=== PATIENT | female | born 1985 | race Caucasian/White ===

== ENCOUNTER 2018-08-14 12:07 | Emergency (ER) | payer MEDICAID, SELFPAY ==
--- NOTE | 2018-08-14 12:13 | NUR.NOTE ---
Nursing Note: pt states that for the past 2 weeks she has had general upper respiratory symptoms pt has productive cough with thick green mucus
[2018-08-14 12:14] VITALS: BP 124/98; PULSE 90; RESP 18; TEMP 37.3; O2SAT 100
--- NOTE | 2018-08-14 12:18 | W.ED.GENAD ---
Discharge Plan Disposition Patient Disposition: HOME Condition: Fair Discharge Details Chief Complaint: RespSymp Clinical Impression: URI (upper respiratory infection), Sinusitis Primary Care Provider: Najma Vaughn ED Provider: Randa Gonsalez Home Meds and New Rx's Prescriptions: New benzonatate [Tessalon Perles] 100 mg capsule 100 mg PO TID PRN (Reason: cough) Qty: 10 RF: 0 amoxicillin-pot clavulanate [Augmentin] 875-125 mg tablet 1 tab PO BID Qty: 14 RF: 0 Discharge Instructions Instructions: Sinusitis (ED), Upper Respiratory Infection (ED) Additional Instructions: Encourage hydration. Tylenol and ibuprofen as needed for discomfort. Please take Augmentin as prescribed for sinus infection. You may continue with the nasal saline. Tessalon Perles prescribed to help with cough. If you develop fever/chills, inability stay hydrated, shortness of breath, difficulty breathing or other new/worsening symptoms please seek care urgently once again. Otherwise, please follow-up with primary care in 1 week if not improving. Referrals: Najma Vaughn [Primary Care Provider] - Discharge Data Discharge Date/Time-TO BE ENTERED AT DEPARTURE: 08/14/18 13:49 Medical Decision Making Patient is a 32-year-old female presenting today with chief complaint of URI. She reports symptoms began approximately 2 weeks ago. Primary complaint at this time is cough and sinus pain. She reports that sinus pain began 2 weeks ago and has persisted since that time. States that she has had intermittent fevers, none today. Has not taken anything as of yet today to have a symptomatic management. Also endorses cough, reports she had some pain with cough this point of the past few days. No chest pain when at rest. She is feeling short of breath. States she is been bringing up green sputum with her cough. No recent travel. No estrogen use. Vital signs are reassuring, pulse 90, oxygen 100%. Lungs are clear on exam. She is quite tender over her frontal sinuses. Plan to obtain chest x-ray to evaluate for pneumonia and treat for sinusitis. Discussed this plan with the patient was in agreement. Patient reports she is not sexually active, recent menses. FINDINGS: Lungs: No focal peripheral lung consolidation, air bronchogram formation, or silhouette sign. Pleural space: No pleural effusion or pneumothorax. Heart/Mediastinum: The heart is not enlarged. The mediastinal contours are normal. Bones/joints: No acute osseous abnormality. IMPRESSION: No pneumonia. Discussed these findings with the patient. Encourage hydration. Patient will be treated for sinusitis. She was given strict return precautions. Advised to follow-up with primary care in 1 week if not improving. Also prescribed Tessalon Perles to help with symptomatic management. We discussed home and [id number] medications and home treatments that may be of benefit to help with symptomatic management. All of her questions and concerns were addressed she is in agreement this plan HPI General Mode of arrival: ambulatory. Date/Time Provider Initiated Documentation: 08/14/18 12:14. Limitations to Documentation: no limitations. Information obtained by: patient and RN notes reviewed. History of Present Illness 32 year old F presents to the emergency department with the chief complaint of URI, described as moderate, with intensity rated at 3 (frontal sinus pain). Quality is described as stabbing, and is localized to the face. Patient reports no radiation. Patient started experiencing this week(s) (2) and it has been constant. No relieving factors improve symptom(s), No exacerbating factors reported . Patient notes chest pain (with cough), cough (productive, bringing up green sputum) and fever/chills; denies headaches, loss of appetite, nausea/vomiting, rash, shortness of breath and weakness. Patient did receive the following treatments prior to arrival, none Related Data Home Medications Medication Instructions Recorded Confirmed amoxicillin-pot clavulanate 1 tab PO BID #14 tab 08/14/18 [Augmentin] benzonatate [Tessalon Perles] 100 mg PO TID PRN #10 cap 08/14/18 Previous Rx's Medication Instructions Recorded amoxicillin-pot clavulanate 1 tab PO BID #14 tab 08/14/18 [Augmentin] benzonatate [Tessalon Perles] 100 mg PO TID PRN #10 cap 08/14/18 Allergies Allergy/AdvReac Type Severity Reaction Status Date / Time No Known Allergies Allergy Unverified 08/14/18 12:16 General Stated Complaint: RespSymp JL: 4 Review of Systems Constitutional Reports as per HPI, Denies chills, Denies fever(s), Reports headache(s) (associates with sinus pain) and Reports poor appetite Eyes Reports as per HPI, Denies eye discharge and Denies irritation ENT Reports as per HPI, Denies ear discharge, Denies otalgia, Reports headache(s) (associates with sinus pain), Reports sinus pain, Reports sinus pressure and Reports sore throat Cardiovascular Reports as per HPI, Denies chest pain and Denies dyspnea Respiratory Reports as per HPI, Reports cough, Denies hemoptysis, Denies dyspnea and Denies wheezing Gastrointestinal Reports as per HPI, Denies abdominal pain, Denies change in bowel habits, Denies nausea and Denies vomiting Integumentary/Breasts Reports as per HPI and Denies rash Neurologic Reports as per HPI and Reports headache(s) (associates with sinus pain) Allergic/Immunologic Denies wheezing [facility] Social History Smoking/Tobacco Use Status: Never Alcohol Intake: current Alcohol Intake frequency: a few times a month Alcohol type: wine Drug use: Never Substance use type: does not use Do you feel safe at home: Yes Do you feel safe in your relationship?: Yes Exam Const General: cooperative, healthy appearing, comfortable, no acute distress, well developed and well groomed Nutritional Appearance: average body habitus and well nourished Orientation: alert and awake [facility] Head: normal to inspection, normocephalic and atraumatic Ears: hearing grossly normal bilaterally, external ears normal and TM's normal bilaterally General nose exam: external nose normal and nares normal Face and sinus: normal facial exam, face symmetric and sinus tenderness maxillary (bilaterally) Mouth: oral mucosae normal, lip normal, tongue normal, oropharynx normal and moist mucous membranes Teeth and gingiva: dentition normal Throat: posterior oropharynx abnormal (erythematous), tonsils normal and uvula midline Eyes General: appearance normal, both eyes and all related structures Neck Neck: normal visual inspection, full ROM, no lymphadenopathy and no meningeal signs Resp Effort & Inspection: normal respiratory effort, able to speak in complete sentences and no respiratory distress Auscultation: clear to auscultation bilaterally, no rales, no rhonchi and no wheezes Cardio Rate: regular rate Rhythm: regular rhythm Heart Sounds: S1 normal and S2 normal Skin General skin exam: no rashes or lesions noted Neuro General: alert and awake Cognition: normal cognition Speech: speech normal Gait: normal gait Psych Appearance: grossly normal and well kempt Mental Status: mental status grossly normal Speech and Movement: speech and movement normal Course Vital Signs Temperature 37.3 C 08/14/18 12:14 Pulse 90 08/14/18 12:14 Respiratory Rate 18 08/14/18 12:14 Blood Pressure 124/98 H 08/14/18 12:14 Pulse Oximetry 100 08/14/18 12:14 Temperature 37.3 C 08/14/18 12:14 Temperature Source Skin 08/14/18 12:14 Pulse 90 08/14/18 12:14 Respiratory Rate 18 08/14/18 12:14 Blood Pressure 124/98 H 08/14/18 12:14 Blood Pressure Position Sitting 08/14/18 12:14 Pulse Oximetry 100 08/14/18 12:14 Oxygen Delivery Method Room Air 08/14/18 12:14 Oxygen Flow Rate 0 08/14/18 12:14 Pain Level 3 08/14/18 12:14
--- NOTE | 2018-08-14 12:29 | DI.RAD_ITS ---
SYMPTOM/DIAGNOSIS: COUGH PA AND LATERAL CHEST: The cardiac and mediastinal contours have a normal appearance. The lungs are well inflated and clear. No infiltrate or effusion is seen. There is no evidence of pneumothorax. IMPRESSION: Negative chest x-ray
--- NOTE | 2018-08-14 12:57 | ED.GENADUL_ITS ---
Discharge Plan Disposition Patient Disposition: HOME Condition: Fair Discharge Details Chief Complaint: RespSymp Clinical Impression: URI (upper respiratory infection), Sinusitis Primary Care Provider: Najma Vaughn ED Provider: Randa Gonsalez Home Meds and New Rx's Prescriptions: New benzonatate [Tessalon Perles] 100 mg capsule 100 mg PO TID PRN (Reason: cough) Qty: 10 RF: 0 amoxicillin-pot clavulanate [Augmentin] 875-125 mg tablet 1 tab PO BID Qty: 14 RF: 0 Discharge Instructions Instructions: Sinusitis (ED), Upper Respiratory Infection (ED) Additional Instructions: Encourage hydration. Tylenol and ibuprofen as needed for discomfort. Please take Augmentin as prescribed for sinus infection. You may continue with the nasal saline. Tessalon Perles prescribed to help with cough. If you develop fever/chills, inability stay hydrated, shortness of breath, difficulty breathing or other new/worsening symptoms please seek care urgently once again. Otherwise, please follow-up with primary care in 1 week if not improving. Referrals: Najma Vaughn [Primary Care Provider] - Discharge Data Discharge Date/Time-TO BE ENTERED AT DEPARTURE: 08/14/18 13:49 Medical Decision Making Patient is a 32-year-old female presenting today with chief complaint of URI. She reports symptoms began approximately 2 weeks ago. Primary complaint at this time is cough and sinus pain. She reports that sinus pain began 2 weeks ago and has persisted since that time. States that she has had intermittent fevers, none today. Has not taken anything as of yet today to have a symptomatic management. Also endorses cough, reports she had some pain with cough this point of the past few days. No chest pain when at rest. She is feeling short of breath. States she is been bringing up green sputum with her cough. No recent travel. No estrogen use. Vital signs are reassuring, pulse 90, oxygen 100%. Lungs are clear on exam. She is quite tender over her frontal sinuses. Plan to obtain chest x-ray to evaluate for pneumonia and treat for sinusitis. Discussed this plan with the patient was in agreement. Patient reports she is not sexually active, recent menses. FINDINGS: Lungs: No focal peripheral lung consolidation, air bronchogram formation, or silhouette sign. Pleural space: No pleural effusion or pneumothorax. Heart/Mediastinum: The heart is not enlarged. The mediastinal contours are normal. Bones/joints: No acute osseous abnormality. IMPRESSION: No pneumonia. Discussed these findings with the patient. Encourage hydration. Patient will be treated for sinusitis. She was given strict return precautions. Advised to follow-up with primary care in 1 week if not improving. Also prescribed Tessalon Perles to help with symptomatic management. We discussed home and [id number] medications and home treatments that may be of benefit to help with symptomatic management. All of her questions and concerns were addressed she is in agreement this plan HPI General Mode of arrival: ambulatory . Date/Time Provider Initiated Documentation: 08/14/18 12:14 . Limitations to Documentation: no limitations . Information obtained by: patient and RN notes reviewed . History of Present Illness 32 year old F presents to the emergency department with the chief complaint of URI, described as moderate, with intensity rated at 3 (frontal sinus pain). Quality is described as stabbing, and is localized to the face. Patient reports no radiation. Patient started experiencing this week(s) (2) and it has been constant. No relieving factors improve symptom(s), No exacerbating factors reported . Patient notes chest pain (with cough), cough (productive, bringing up green sputum) and fever/chills; denies headaches, loss of appetite, nausea/vomiting, rash, shortness of breath and weakness. Patient did receive the following treatments prior to arrival, none Related Data Home Medications Medication Instructions Recorded Confirmed amoxicillin-pot clavulanate 1 tab PO BID #14 tab 08/14/18 [Augmentin] benzonatate [Tessalon Perles] 100 mg PO TID PRN #10 cap 08/14/18 Previous Rx's Medication Instructions Recorded amoxicillin-pot clavulanate 1 tab PO BID #14 tab 08/14/18 [Augmentin] benzonatate [Tessalon Perles] 100 mg PO TID PRN #10 cap 08/14/18 Allergies Allergy/AdvReac Type Severity Reaction Status Date / Time No Known Allergies Allergy Unverified 08/14/18 12:16 General Stated Complaint: RespSymp JL: 4 Review of Systems Constitutional Reports as per HPI, Denies chills, Denies fever(s), Reports headache(s) (associates with sinus pain) and Reports poor appetite Eyes Reports as per HPI, Denies eye discharge and Denies irritation ENT Reports as per HPI, Denies ear discharge, Denies otalgia, Reports headache(s) (associates with sinus pain), Reports sinus pain, Reports sinus pressure and Reports sore throat Cardiovascular Reports as per HPI, Denies chest pain and Denies dyspnea Respiratory Reports as per HPI, Reports cough, Denies hemoptysis, Denies dyspnea and Denies wheezing Gastrointestinal Reports as per HPI, Denies abdominal pain, Denies change in bowel habits, Denies nausea and Denies vomiting Integumentary/Breasts Reports as per HPI and Denies rash Neurologic Reports as per HPI and Reports headache(s) (associates with sinus pain) Allergic/Immunologic Denies wheezing [facility] Social History Smoking/Tobacco Use Status: Never Alcohol Intake: current Alcohol Intake frequency: a few times a month Alcohol type: wine Drug use: Never Substance use type: does not use Do you feel safe at home: Yes Do you feel safe in your relationship?: Yes Exam Const General: cooperative, healthy appearing, comfortable, no acute distress, well developed and well groomed Nutritional Appearance: average body habitus and well nourished Orientation: alert and awake [facility] Head: normal to inspection, normocephalic and atraumatic Ears: hearing grossly normal bilaterally, external ears normal and TM's normal bilaterally General nose exam: external nose normal and nares normal Face and sinus: normal facial exam, face symmetric and sinus tenderness maxillary (bilaterally) Mouth: oral mucosae normal, lip normal, tongue normal, oropharynx normal and moist mucous membranes Teeth and gingiva: dentition normal Throat: posterior oropharynx abnormal (erythematous), tonsils normal and uvula midline Eyes General: appearance normal, both eyes and all related structures Neck Neck: normal visual inspection, full ROM, no lymphadenopathy and no meningeal signs Resp Effort & Inspection: normal respiratory effort, able to speak in complete sentences and no respiratory distress Auscultation: clear to auscultation bilaterally, no rales, no rhonchi and no wheezes Cardio Rate: regular rate Rhythm: regular rhythm Heart Sounds: S1 normal and S2 normal Skin General skin exam: no rashes or lesions noted Neuro General: alert and awake Cognition: normal cognition Speech: speech normal Gait: normal gait Psych Appearance: grossly normal and well kempt Mental Status: mental status grossly normal Speech and Movement: speech and movement normal Course Vital Signs Temperature 37.3 C 08/14/18 12:14 Pulse 90 08/14/18 12:14 Respiratory Rate 18 08/14/18 12:14 Blood Pressure 124/98 H 08/14/18 12:14 Pulse Oximetry 100 08/14/18 12:14 Temperature 37.3 C 08/14/18 12:14 Temperature Source Skin 08/14/18 12:14 Pulse 90 08/14/18 12:14 Respiratory Rate 18 08/14/18 12:14 Blood Pressure 124/98 H 08/14/18 12:14 Blood Pressure Position Sitting 08/14/18 12:14 Pulse Oximetry 100 08/14/18 12:14 Oxygen Delivery Method Room Air 08/14/18 12:14 Oxygen Flow Rate 0 08/14/18 12:14 Pain Level 3 08/14/18 12:14
--- NOTE | 2018-08-14 13:00 | DI.VRAD_ITS ---
EXAM: XR Chest, 2 Views EXAM DATE/TIME: 08/14/2018 12:30 PM CLINICAL HISTORY: 32 years old, female; Cough and wheezing TECHNIQUE: Imaging protocol: XR of the chest, 2 views. COMPARISON: No relevant prior studies available. FINDINGS: Lungs: No focal peripheral lung consolidation, air bronchogram formation, or silhouette sign. Pleural space: No pleural effusion or pneumothorax. Heart/Mediastinum: The heart is not enlarged. The mediastinal contours are normal. Bones/joints: No acute osseous abnormality. IMPRESSION: No pneumonia. Dictated and Authenticated by: Artur Yo MD. Ordering:CHRISTINA Tolentino MD
[2018-08-14 13:53] VITALS: BP 124/80; PULSE 90; RESP 18; TEMP 37.3; O2SAT 100
--- NOTE | 2018-08-14 13:54 | NUR.NOTE ---
Nursing Note: pt given clear instructions on prescriptions as well as over the counter medications such as affrin
== END 2018-08-14 13:49 | disposition home or self-care (01) ==
PROVIDERS: Emergency Provider Physician Assistant; PCP Nurse Practitioner Family
DX: J06.9 Acute upper respiratory infection, unspecified (principal); J01.10 Acute frontal sinusitis, unspecified
CPT/HCPCS: 99283; 71046

== ENCOUNTER 2018-09-01 12:11 | Outpatient (REF) | payer MEDICAID, SELFPAY ==
[2018-09-02 12:31] LABS: Chlamydia Result Negative; GC Result Negative; Specimen Description URINE
[2018-09-04 10:35] LABS: HIV-1/2 Ag & Ab Screen Negative (NEGAT)
[2018-09-06 10:46] LABS: Hepatitis B Surface Ag Negative (NEGAT)
[2018-09-06 12:50] LABS: Syphilis Serology (RPR) Negative (Negative)
== END 2018-09-01 12:31 ==
LOC: NCHCN 12:11
PROVIDERS: PCP Nurse Practitioner Family; Visit Provider Family Medicine
DX: Z20.2 Contact with and (suspected) exposure to infections with a predominantly sexual mode of transmission (principal); Z11.4 Encounter for screening for human immunodeficiency virus [HIV]; Z11.3 Encounter for screening for infections with a predominantly sexual mode of transmission; Z11.59 Encounter for screening for other viral diseases
CPT/HCPCS: 87340; 87389; 87491; 87591; 86592

== ENCOUNTER 2018-10-19 10:56 | Outpatient (REF) | payer MEDICAID, SELFPAY ==
[2018-10-20 10:56] LABS: HIV-1/2 Ag & Ab Screen Negative (NEGAT)
[2018-10-20 12:50] LABS: Syphilis Serology (RPR) Negative (Negative)
[2018-10-20 14:03] LABS: Chlamydia Result Negative; GC Result Negative
== END 2018-10-19 11:16 ==
LOC: NCHCN 10:56
PROVIDERS: PCP Nurse Practitioner Family; Visit Provider Nurse Practitioner Family
DX: Z20.2 Contact with and (suspected) exposure to infections with a predominantly sexual mode of transmission (principal); Z11.4 Encounter for screening for human immunodeficiency virus [HIV]; Z11.3 Encounter for screening for infections with a predominantly sexual mode of transmission
CPT/HCPCS: 87389; 87491; 87591; 86592

== ENCOUNTER 2019-09-07 13:57 | Outpatient (REF) | payer MEDICAID, SELFPAY ==
[2019-09-07 19:19] LABS: Bilirubin Negative (Negative); Blood Moderate (Negative); Clarity Sl Cloudy (Clear); Glucose Negative (Negative); Ketones Negative (Negative); Leukocyte Esterase Large (Negative); Nitrite Negative (Negative); Urobilinogen 0.2 EU/dL (Up TO 0.2)
[2019-09-07 19:35] LABS: Bacteria Many HPF (Negative); C & S Indicated? C&S Done As Ordered; Epithelial Cells Few HPF (Negative); Other Cells Few Transitional (Negative); RBC 0-2 HPF (0-2); WBC >50 HPF (0-5)
[2019-09-07 19:39] LABS: ALT 22 U/L (14-59)
[2019-09-09 09:15] LABS: HBs Antibody, Quant <3.1 mIU/mL (See Note); Hepatitis B Surface Ab Negative (See Note)
[2019-09-09 09:32] LABS: Hepatitis B Surface Ag Negative (Negative)
[2019-09-09 10:08] LABS: HIV-1/2 Ag & Ab Screen Negative (Negative)
[2019-09-09 10:15] LABS: Hepatitis C Ab w Rflx HCV PCR Negative (Negative)
[2019-09-09 10:26] LABS: Hep A Total Ab w Rflx IgM Negative (Negative)
[2019-09-09 10:35] LABS: Hep B Core Antibody Positive (Negative)
[2019-09-09 13:56] LABS: Chlamydia Result Negative (Negative); GC Result Negative (Negative)
== END 2019-09-07 14:17 ==
LOC: NCHCN 13:57
PROVIDERS: PCP Nurse Practitioner Family; Visit Provider Nurse Practitioner Family
DX: Z20.2 Contact with and (suspected) exposure to infections with a predominantly sexual mode of transmission (principal); Z01.84 Encounter for antibody response examination; Z11.59 Encounter for screening for other viral diseases; Z11.4 Encounter for screening for human immunodeficiency virus [HIV]; B35.1 Tinea unguium; Z11.3 Encounter for screening for infections with a predominantly sexual mode of transmission; R31.9 Hematuria, unspecified; R68.83 Chills (without fever); R11.0 Nausea
CPT/HCPCS: 86704; 86706; 86709; 86803; 87077; 87340; 87389; 87491; 87591; 81003; 81015; 84460; 87086; 87186; 87480; 87510; 87660

== ENCOUNTER 2020-01-23 11:24 | Emergency (ER) | payer MEDICAID, SELFPAY ==
[2020-01-23 11:30] VITALS: BP 111/67; PULSE 90; RESP 16; TEMP 36.7; O2SAT 97
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
[2020-01-23 12:14] LABS: Bilirubin Negative (Negative); Blood Trace-intact (Negative); Glucose Negative (Negative); Ketones Negative (Negative); Leukocyte Esterase Trace (Negative); Nitrite Negative (Negative); Specific Gravity 1.025 (1.005-1.025); Urobilinogen 0.2 EU/dL (Up TO 0.2)
[2020-01-23 12:24] LABS: Clarity Sl Cloudy (Clear)
[2020-01-23 12:25] LABS: Bacteria Few HPF (Negative); C & S Indicated? Yes; Casts Negative LPF (Negative); Crystals Negative HPF (Negative); Epithelial Cells Rare HPF (Negative); Mucus Trace (Negative); WBC >50 HPF (0-5)
--- NOTE | 2020-01-23 12:30 | DI.CT_ITS ---
EXAM: CT HEAD WO CLINICAL HISTORY: Paresthesias. TECHNIQUE: Imaging Protocol: Axial computed tomography images with coronal and sagittal reformatted images were created and reviewed COMPARISON: No exams were available for comparison FINDINGS: Ventricles and Extra axial spaces: Normal in size and morphology for the patient's age. Hemorrhage: None. Cerebral parenchyma: Normal. Midline shift: None. Brainstem/Cerebellum: Normal. Calvarium: Normal. Visualized Paranasal sinuses/Mastoids: Clear. Soft Tissues: Unremarkable. IMPRESSION: No acute intracranial process. RADIATION DOSE DELIVERED: 696.8mGy.cm Total DLP DATA REPOSITORY: All CT scans at this facility are submitted to the National Radiology Data Registry (NRDR) Dose Index Registry (DIR) with the [employer] (ACR). RADIATION OPTIMIZATION: All CT scans at this facility use at least one of these dose optimization te chniques: automated exposure control; mA and/or kV adjustment per patient size (includes targeted exa ms where dose is matched to clinical indication); or iterative reconstruction.
[2020-01-23 12:59] LABS: Abs Immature Grans 0.02 10^3/uL (0.0-0.06); Absolute Basophil Count 0.02 10^3/uL (0.0-0.2); Absolute Eosinophil Count 0.03 10^3/uL (0.0-0.7); Absolute Lymphocyte Count 1.26 10^3/uL (1.2-3.4); Absolute Neutrophil Count 5.47 10^3/uL (1.2-6.7); Basophils % 0.3; Eosinophils % 0.4; HCT 39.2 % (36.0-46.0); Immature Grans % 0.3; MCH 31.9 pg (27.0-33.0); MCHC 33.2 % (32.0-36.0); MCV 96.1 fL (80-95); MPV 10.6 fL (8.0-11.0); Monocytes % 8.1; Neutrophils % 73.9; Nucleated RBC 0 %; Platelet Count 154 10^3/uL (130-400); RBC 4.08 10^6/uL (3.93-5.22); RDW 12.1 % (11.7-14.6); RDW-SD 42.8 fL
[2020-01-23 13:16] LABS: ALT 22 U/L (14-59); AST 16 U/L (15-37); Albumin 3.8 g/dL (3.4-5.0); Alkaline Phosphatase 49 U/L (46-116); Anion Gap 6.4 mmol/L (3-11); BUN 9 mg/dL (7-18); Bilirubin, Total 0.5 mg/dL (0.2-1.0); CO2 28.6 mmol/L (21.0-32.0); CREATININE 0.73 mg/dL (0.55-1.02); Calcium 8.7 mg/dL (8.5-10.1); Chloride 105 mmol/L (98-107); Glucose 84 mg/dL (74-106); Lipase 87 U/L (73-393); PHOSPHORUS 3.7 mg/dL (2.6-4.7); Potassium 3.7 mmol/L (3.5-5.1); Sodium 140 mmol/L (136-145); Total Protein 7.1 g/dL (6.4-8.2)
[2020-01-23 13:18] LABS: Troponin I < 0.05 ng/mL (<0.06)
[2020-01-23 13:20] LABS: *AMPHETAMINES SCREEN URINE Negative (Negative); *BARBITURATES SCREEN URINE Negative (Negative); *BENZODIAZEPINES SCREEN URINE Negative (Negative); Cannabinoids THC Negative (Negative); Cocaine Screen,Urine Negative (Negative); METHADONE URINE SCREEN Negative (Negative); OPIATES URINE SCREEN Negative (Negative)
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
[2020-01-23 13:22] LABS: Tricyclic Antidepressants Negative (Negative)
--- NOTE | 2020-01-23 14:03 | DI.RAD_ITS ---
EXAM: XR CHEST 2V PA LATERAL CLINICAL HISTORY: Paresthesias TECHNIQUE: 2D digital imaging was performed. COMPARISON: CR XR CHEST 2V PA LATERAL from 08/14/2018 FINDINGS: MEDIASTINUM: Normal. HEART: Normal. PULMONARY VASCULATURE: Normal. LUNGS: Clear. PLEURAL SPACE: No pleural effusion or pneumothorax. BONE:Normal. IMPRESSION: No acute pulmonary findings. DATA REPOSITORY: RADIATION DOSE DELIVERED:
[2020-01-23 14:08] VITALS: BP 104/59; PULSE 66; RESP 18; TEMP 36.8; O2SAT 98
[2020-01-23 15:17] VITALS: BP 110/62; PULSE 68; RESP 18; TEMP 36.8; O2SAT 98
== END 2020-01-23 15:59 | disposition home or self-care (01) ==
PROVIDERS: Emergency Provider Physician Assistant; PCP Nurse Practitioner Family
DX: F41.8 Other specified anxiety disorders (principal); N39.0 Urinary tract infection, site not specified; R20.2 Paresthesia of skin; H53.8 Other visual disturbances
CPT/HCPCS: 36415; 80053; 80307; 81025; 83690; 99284; 70450; 71046; 81003; 81015; 83735; 84100; 84484; 85025; 87086

== ENCOUNTER 2020-06-19 18:39 | Outpatient (REF) | payer MEDICAID, SELFPAY ==
[2020-06-19 22:04] LABS: Albumin 4.3 g/dL (3.4-5.0); Calcium 8.8 mg/dL (8.5-10.1); TSH (W/Ref FT4) 2.43 uIU/mL (0.36-3.74); Vitamin B12 529 pg/mL (193-986)
[2020-06-21 10:39] LABS: Lyme Ab w Rflx to Lyme Confirm Positive (Negative)
[2020-06-27 16:06] LABS: IgG Band(s) p93; IgG Immunoblot Positive (Negative); IgM Immunoblot Negative (Negative)
== END 2020-06-19 18:40 | disposition home or self-care (01) ==
LOC: NCHCN 18:39
PROVIDERS: PCP Nurse Practitioner Family; Visit Provider Family Medicine
DX: R20.2 Paresthesia of skin (principal); F41.9 Anxiety disorder, unspecified
CPT/HCPCS: 86617; 82040; 82310; 82607; 84443; 86618

== ENCOUNTER 2020-08-08 08:18 | Emergency (ER) | payer MEDICAID, SELFPAY ==
[2020-08-08 08:40] VITALS: BP 115/68; PULSE 74; RESP 22; TEMP 36.6; O2SAT 100
[2020-08-08 08:46] LABS: Bilirubin Negative (Negative); Blood Moderate (Negative); Clarity Clear (Clear); Glucose Negative (Negative); Ketones Negative (Negative); Leukocyte Esterase Trace (Negative); Nitrite Negative (Negative); Specific Gravity 1.015 (1.005-1.025); Urobilinogen 0.2 EU/dL (Up TO 0.2)
--- NOTE | 2020-08-08 08:48 | W.ED.GENAD ---
Discharge Plan Disposition Patient Disposition: HOME Condition: Stable Discharge Details Clinical Impression: UTI (urinary tract infection) Primary Care Provider: Najma Vaughn ED Provider: Blair Vega Home Meds and New Rx's Prescriptions: New sulfamethoxazole-trimethoprim [Bactrim DS] 800-160 mg tablet 1 tab PO BID 7 Days Qty: 14 RF: 0 Continued ascorbic acid (vitamin C) 25 mg Tablet 25 mg PO DAILY RF: 0 Probiotic 10 billion cell Capsule 10 cell PO DAILY RF: 0 No Action COVID-19 vacc,mRNA(Moderna)-PF 100 mcg/0.5 mL suspension 0.5 ml IM ONCE Qty: 0.5 RF: 0 Discharge Instructions Instructions: Urinary Tract Infection in Women (ED) Additional Instructions: Please take antibiotic as prescribed. Avoid alcohol while taking the antibiotic. Pyridium as prescribed. We will make a referral for you to [facility]. Small, frequent sips of fluids so that you maintain good hydration. Medical Decision Making 34-year-old female with a history of previous UTI states that she developed urinary frequency, urgency, burning over the weekend. States she has had recurrent UTIs but no formal gynecologic evaluation. Today she is well-appearing, interactive, with a relatively benign exam. Urinalysis consistent with acute UTI. She is intolerant of penicillins. Will place on Bactrim. Given her history of recurrent UTIs I do feel establishing care with [facility] is appropriate and we will make the referral. Patient stable for discharge to home. HPI General Mode of arrival: ambulatory. Date/Time Provider Initiated Documentation: 08/08/20 08:20. Limitations to Documentation: no limitations. Information obtained by: patient. History of Present Illness 34 year old F presents to the emergency department with the chief complaint of Dysuria, described as moderate, and is localized to the abdomen and pelvis. Patient reports no radiation. Patient started experiencing this hour(s) and it has been intermittent. No relieving factors improve symptom(s), No exacerbating factors reported . Patient notes denies fever/chills. Patient did receive the following treatments prior to arrival, none Related Data Home Medications Medication Instructions Recorded Confirmed Probiotic 10 cell PO DAILY 08/08/20 08/08/20 ascorbic acid (vitamin C) 25 mg PO DAILY 08/08/20 08/08/20 sulfamethoxazole-trimethoprim 1 tab PO BID 7 Days #14 tab 08/08/20 [Bactrim DS] Previous Rx's Medication Instructions Recorded sulfamethoxazole-trimethoprim 1 tab PO BID 7 Days #14 tab 08/08/20 [Bactrim DS] Allergies Allergy/AdvReac Type Severity Reaction Status Date / Time amoxicillin Allergy Intermediate Skin Rash Unverified 03/21/20 15:01 Penicillins Allergy Unverified 08/08/20 08:43 Dairy AdvReac Uncoded 03/21/20 15:01 General JL: 3 Review of Systems Narrative: No fever or vomiting. No vaginal discharge or bleeding. Similar to previous. Sick systems reviewed and otherwise negative [facility] Social History Smoking/Tobacco Use Status: Never Smoking risk assessment performed?: Yes Alcohol Intake: current Alcohol Intake frequency: a few times a month Alcohol type: wine Drug use: Never Substance use type: does not use Do you feel safe at home: No Additional Social history: patient states she [facility]. Exam Narrative Exam Narrative: GEN: awake, alert, oriented 3. Pleasant, well groomed, interactive. HEAD: Normocephalic, atraumatic ENT: Mucous membranes moist, oropharynx unremarkable, External ear exam unremarkable EYES: PERRL, EOMI NECK: Full ROM, no MARISELA, no menigismus CHEST/RESP: Nontender, clear to auscultation bilateral, no wheeze/rhonchi/rales CARDIOVASCULAR: RRR, no murmur, rub abhilash. 2+ Rad pulse bilateral ABDOMEN: Soft, nontender, no mass. +Bowel sounds EXT: Full ROM, no edema, no rash Neuro: Grossly normal neurologic exam, conversant, interactive. Psych: Speech fluent, thoughts congruent, affect normal Course Lab/Test Results Lab/Test Results: POC- Test(urine) Negative
--- NOTE | 2020-08-08 08:53 | NUR.NOTE ---
Nursing Note: faxed to [facility]
[2020-08-08 08:54] LABS: Bacteria Rare HPF (Negative); C & S Indicated? Yes; Casts Negative LPF (Negative); Crystals Negative HPF (Negative); Epithelial Cells Few HPF (Negative); Mucus Negative (Negative); RBC 0-2 HPF (0-2)
[2020-08-08] MEDS: Sulfameth/Trimeth DS, 2 TABS/BTL 1 TAB PO (09:07)
[2020-08-08] MEDS: Phenazopyridine 100 MG TAB, 2 TABS/BTL PO (09:07)
== END 2020-08-08 09:02 | disposition home or self-care (01) ==
PROVIDERS: Emergency Provider Emergency Medicine; PCP Nurse Practitioner Family
DX: N39.0 Urinary tract infection, site not specified (principal)
CPT/HCPCS: 81025; 99283; 81003; 81015; 87086

== ENCOUNTER 2020-08-17 06:31 | Emergency (ER) | payer MEDICAID, SELFPAY ==
--- NOTE | 2020-08-17 06:35 | W.ED.GENAD ---
Discharge Plan Disposition Patient Disposition: HOME Condition: Improving Discharge Details Clinical Impression: Allergic reaction caused by a drug, Anxiety Primary Care Provider: Najma Vaughn ED Provider: Jean Manuel Meds and New Rx's Prescriptions: New prednisone 20 mg tablet 40 mg PO HS Qty: 8 RF: 0 Continued ascorbic acid (vitamin C) 25 mg Tablet 25 mg PO DAILY RF: 0 Probiotic 10 billion cell Capsule 10 cell PO DAILY RF: 0 lorazepam 0.5 mg tablet 0.5 mg PO DAILY PRNRF: 0 buspirone 7.5 mg tablet 7.5 mg PO BID RF: 0 Discharge Instructions Instructions: Anxiety (ED), General Allergic Reaction (ED) Additional Instructions: Avoid Bactrim and other sulfa drugs in the future. Take diphenhydramine 25 mg orally every 6 hours for the next 4 days. Take famotidine 20 mg twice a day for the next 4 days. Begin prescription for prednisone tonight. Would also start your recently prescribed anxiety medications. Follow-up with primary care next week. Return to ED for throat or lip swelling, difficulty breathing, source involving the mouth, vagina or significant inflammation/injection of the eyes. Referrals: Najma Vaughn [Primary Care Provider] - Medical Decision Making Patient here with allergic reaction to Bactrim. Does not involve any sloughing, mucosal membranes, conjunctival involvement. Does not appear to be Hutchinson-Sean type reaction. IV established and will give diphenhydramine, famotidine, Solu-Medrol. Patient's anxiety increased. She has been recently placed on new medication for anxiety but has not yet started taking it. She is given 1 mg Ativan IV. She will get a ride home. In regards to her allergic reaction that seems a little bit better. Will continue Benadryl 25 mg every 6 hours, Pepcid 20 mg twice a day, prednisone 40 mg at night. We will do these medications over the next 4 days. Advised to start her anxiety medications as well. Consider not driving while taking Benadryl and Ativan. Follow-up with primary care next week. Return to ED for any throat swelling, difficulty breathing, mucosal sores, eye involvement. HPI General Mode of arrival: ambulatory. Date/Time Provider Initiated Documentation: 08/17/20 06:32. Limitations to Documentation: no limitations. Information obtained by: patient and RN notes reviewed. HPI Narrative: Patient recently finished Bactrim for UTI. Yesterday developed pruritic rash which has become worse overnight. She did speak to her PCP yesterday and was told that it would likely resolve without issue. She did not take anything. She has no GI symptoms. She has no difficulty breathing. She does feel like her throat tight. She is extremely emotional and upset and concerned something bad will happen. She denies any sores or lesions to the vaginal mucosa or oral mucosa. She denies any eye symptoms. Related Data Home Medications Medication Instructions Recorded Confirmed Probiotic 10 cell PO DAILY 08/08/20 08/17/20 ascorbic acid (vitamin C) 25 mg PO DAILY 08/08/20 08/17/20 buspirone 7.5 mg PO BID 08/17/20 08/17/20 lorazepam 0.5 mg PO DAILY PRN 08/17/20 08/17/20 prednisone 40 mg PO HS #8 tab 08/17/20 Previous Rx's Medication Instructions Recorded prednisone 40 mg PO HS #8 tab 08/17/20 Allergies Allergy/AdvReac Type Severity Reaction Status Date / Time Penicillins Allergy Severe Hives Verified 08/17/20 07:43 sulfamethoxazole Allergy Severe Hives Verified 08/17/20 06:52 [From Bactrim] trimethoprim [From Bactrim] Allergy Severe Hives Verified 08/17/20 06:52 Dairy AdvReac Uncoded 08/17/20 06:42 General JL: 3 Review of Systems Narrative: As documented in HPI otherwise negative as below. Const: no fever, chills, weakness Resp: no cough, SOB, pleuritic pain CV: no CP, diaphoresis, edema, syncope GI: no abdominal pain, nausea, vomiting, diarrhea Neuro: no headache, numbness, focal weakness, confusion [facility] Medical History No significant past medical history Surgical History No significant past surgical history Social History Smoking/Tobacco Use Status: Never Smoking risk assessment performed?: Yes Alcohol Intake: current Alcohol Intake frequency: a few times a month Alcohol type: wine Drug use: Never Substance use type: does not use Do you feel safe at home: No Additional Social history: patient states she has [facility] and home for help. Exam Narrative Exam Narrative: Const: WDWN female in NAD. HEENT: NC/AT. Normal facial exam. No lip or oropharyngeal swelling. No mucosal lesions. Eyes: Normal conjunctiva and sclera. Neck: Supple. Trachea midline. Lungs: Normal respiratory effort. Lungs are clear. Cor: RRR without murmur/gallop. Good radial pulses. Neuro: A+O x 3. Normal speech, mentation, gait. Cranial nerves II - XII grossly intact. No gross motor or sensory deficit. Ext: No C/C/E. Skin: Warm and dry with diffuse puritic maculopapular rash.
[2020-08-17 06:36] VITALS: BP 120/78; PULSE 101; RESP 22; TEMP 36.6; O2SAT 99
[2020-08-17] MEDS: methylPREDNISolone SUCC 125 MG VIAL IVP (06:57)
[2020-08-17] MEDS: diphenhydrAMINE 50 MG/ML VIAL 25 MG IVP (06:59)
[2020-08-17] MEDS: FAMOTIDINE 20 MG/50 ML BAG 200 MG IVPB (07:04)
[2020-08-17] MEDS: LORazepam 2 MG/ML VIAL 1 MG IVP (07:19)
[2020-08-17 07:22] VITALS: BP 120/77; PULSE 111; RESP 20; O2SAT 100
[2020-08-17 08:01] VITALS: BP 97/54; PULSE 73; RESP 20; TEMP 36.6; O2SAT 100
== END 2020-08-17 08:15 | disposition home or self-care (01) ==
PROVIDERS: Emergency Provider Emergency Medicine; PCP Nurse Practitioner Family
DX: L27.0 Generalized skin eruption due to drugs and medicaments taken internally (principal); T36.8X5A Adverse effect of other systemic antibiotics, initial encounter
CPT/HCPCS: 96365; 96375; 99284; 99283; J1200; J2060; J2930

== ENCOUNTER 2020-09-04 04:18 | Outpatient (CLI) | payer MEDICAID, SELFPAY ==
[2020-09-04 14:22] LABS: Kit/Specimen SENT
== END 2020-09-04 04:19 | disposition home or self-care (01) ==
LOC: LBO 04:18
PROVIDERS: PCP Nurse Practitioner Family; Visit Provider Naturopath
DX: G60.9 Hereditary and idiopathic neuropathy, unspecified (principal); R51.9 Headache, unspecified
CPT/HCPCS: 36415

== ENCOUNTER 2020-09-19 13:09 | Outpatient (CLI) | payer MEDICAID, SELFPAY ==
[2020-09-19 15:30] LABS: Abs Immature Grans 0.01 10^3/uL (0.0-0.06); Absolute Basophil Count 0.02 10^3/uL (0.0-0.2); Absolute Eosinophil Count 0.07 10^3/uL (0.0-0.7); Absolute Lymphocyte Count 1.57 10^3/uL (1.2-3.4); Absolute Monocyte Count 0.57 10^3/uL (0.1-0.8); Absolute Neutrophil Count 4.39 10^3/uL (1.2-6.7); Basophils % 0.3; Eosinophils % 1.1; HCT 36.2 % (36.0-46.0); Immature Grans % 0.2; Lymphocytes % 23.7; MCH 31.6 pg (27.0-33.0); MCHC 33.1 % (32.0-36.0); MCV 95.3 fL (80-95); MPV 10.9 fL (8.0-11.0); Monocytes % 8.6; Neutrophils % 66.1; Nucleated RBC 0 %; Platelet Count 162 10^3/uL (130-400); RDW 12.1 % (11.7-14.6); RDW-SD 42.5 fL; WBC 6.63 10^3/uL (4.4-10.8)
[2020-09-19 15:31] LABS: ESR 1 mm/hr (0-20)
[2020-09-19 15:33] LABS: Bilirubin Negative (Negative); Blood Large (Negative); Clarity Sl Cloudy (Clear); Glucose Negative (Negative); Ketones Negative (Negative); Leukocyte Esterase Negative (Negative); Nitrite Negative (Negative); Urobilinogen 0.2 EU/dL (Up TO 0.2)
[2020-09-19 15:56] LABS: Bacteria Rare HPF (Negative); C & S Indicated? No; Casts Negative LPF (Negative); Crystals Negative HPF (Negative); Epithelial Cells Rare HPF (Negative); Mucus Negative (Negative); WBC 0-2 HPF (0-5)
[2020-09-19 17:43] LABS: ALT 22 U/L (14-59); AST 20 U/L (15-37); Albumin 3.9 g/dL (3.4-5.0); Alkaline Phosphatase 47 U/L (46-116); Anion Gap 8.8 mmol/L (3-11); BUN 10 mg/dL (7-18); Bilirubin, Total 0.5 mg/dL (0.2-1.0); CO2 26.2 mmol/L (21.0-32.0); CREATININE 0.8 mg/dL (0.55-1.02); Calcium 8.5 mg/dL (8.5-10.1); Chloride 104 mmol/L (98-107); Ferritin 57 ng/mL (8-252); Glucose 98 mg/dL (74-106); Potassium 3.7 mmol/L (3.5-5.1); Sodium 139 mmol/L (136-145); Total Protein 6.5 g/dL (6.4-8.2); Vitamin B12 1135 pg/mL (193-986)
[2020-09-19 17:44] LABS: Folate > 20.0 ng/mL (8.6-20.0)
[2020-09-19 18:06] LABS: C-Reactive Protein 0.47 mg/dL (0.0-0.3)
[2020-09-20 15:15] LABS: ANA Interpretation Negative (Negative)
[2020-09-21 12:43] LABS: Copper, Serum 0.94 mcg/mL (0.75-1.45)
[2020-09-21 15:40] LABS: M. pneumoniae Ab, IgG Positive (Negative); M. pneumoniae Ab, IgM Negative (Negative)
== END 2020-09-19 13:10 | disposition home or self-care (01) ==
LOC: LBO 13:10
PROVIDERS: PCP Nurse Practitioner Family; Visit Provider Naturopath
DX: N39.0 Urinary tract infection, site not specified (principal); R58 Hemorrhage, not elsewhere classified; M25.59 Pain in other specified joint
CPT/HCPCS: 36415; 80053; 85652; 81003; 81015; 82525; 82607; 82728; 82746; 85025; 86038; 86140; 86738